=== PATIENT | male | born 1985 ===

== ENCOUNTER 2017-04-26 20:23 | Emergency (ER) | payer OTHER ==
[2017-04-26 20:31] VITALS: BMI 28.1
--- NOTE | 2017-04-26 20:43 | ED PDOC ---
Arrival/HPI - General Chief Complaint: Alcohol Ingestion Time Seen by Provider: 04/26/17 20:24 Historian: EMS, Police - History of Present Illness Narrative History of Present Illness (Text): 04/26/17 20:40 A 31 year old male brought into the emergency department by EMS and [place] [employer] for public intoxication. Patient admits to drinking alcohol.Denies any drug use.No somatic complaints.Patient asking for TV controller to change channels. Time/Duration: Prior to Arrival Context: Street Past Medical History - Provider Review Nursing Documentation Reviewed: Yes - Infectious Disease Hx of Infectious Diseases: None - Cardiac Hx Cardiac Disorders: No - Pulmonary Hx Respiratory Disorders: No - Neurological Hx Neurological Disorder: No - HEENT Hx HEENT Disorder: No - Renal Hx Renal Disorder: Yes Hx Kidney Stones: Yes - Endocrine/Metabolic Hx Endocrine Disorders: No - Hematological/Oncological Hx Blood Disorders: No - Integumentary Hx Dermatological Disorder: No - Musculoskeletal/Rheumatological Hx Musculoskeletal Disorders: No - Gastrointestinal Hx Gastrointestinal Disorders: No - Genitourinary/Gynecological Hx Genitourinary Disorders: No - Psychiatric Hx Psychophysiologic Disorder: No Hx Substance Use: No - Surgical History Other/Comment: Lithotripsy - Anesthesia Hx Anesthesia: Yes Hx Anesthesia Reactions: No Hx Malignant Hyperthermia: No - Suicidal Assessment Feels Threatened In Home Enviroment: No Family/Social History - Physician Review Nursing Documentation Reviewed: Yes Family/Social History: No Known Family HX Smoking Status: Never Smoked Hx Alcohol Use: Yes Hx Substance Use: No Allergies/Home Meds Allergies/Adverse Reactions: Allergies No Known Allergies Allergy (Verified 04/26/17 20:38) Home Medications: Home Meds Medication Instructions Recorded Confirmed Unobtainable [Unobtainable] 09/21/14 09/21/14 Review of Systems - Review of Systems Systems not reviewed;Unavailable: Intoxicated Physical Exam Vital Signs Reviewed: Yes Vital Signs Temp Pulse Resp BP Pulse Ox 04/26/17 22:23 98.6 F 90 15 142/70 99 04/26/17 20:27 98.5 F 110 H 21 145/89 98 Temperature: Afebrile Blood Pressure: Normal Pulse: Tachycardic Respiratory Rate: Normal Appearance: Positive for: Other (Intoxicated male) Mental Status: No: Agitated - Systems Exam Head: Present: Atraumatic, Normocephalic Pupils: Present: PERRL Extroacular Muscles: Present: EOMI Conjunctiva: Present: Normal Mouth: Present: Moist Mucous Membranes Neck: Present: Normal Range of Motion Respiratory/Chest: Present: Clear to Auscultation, Good Air Exchange. No: Respiratory Distress, Accessory Muscle Use Cardiovascular: Present: Regular Rate and Rhythm, Normal S1, S2. No: Murmurs Abdomen: Present: Normal Bowel Sounds. No: Tenderness, Distention, Peritoneal Signs Back: Present: Normal Inspection Upper Extremity: Present: Normal Inspection. No: Cyanosis, Edema Lower Extremity: Present: Normal Inspection. No: Edema Skin: Present: Warm, Dry, Normal Color. No: Rashes Psychiatric: Present: Intoxicated Medical Decision Making ED Course and Treatment: 04/26/17 20:40 Impression: A 31 year old male brought in for public intoxication. Plan is observe patient in the emergency room pending sobriety. Differential Diagnosis included but are not limited to: Alcohol intoxication Plan: -- ED observation -- Reassess and disposition Progress Notes: 04/27/17 02:42 Pt. remains awake alert sober with steady gait in ED. - Scribe Statement The provider has reviewed the documentation as recorded by the Scribe Susan Plascencia Provider Scribe Attestation: All medical record entries made by the Scribe were at my direction and personally dictated by me. I have reviewed the chart and agree that the record accurately reflects my personal performance of the history, physical exam, medical decision making, and the department course for this patient. I have also personally directed, reviewed, and agree with the discharge instructions and disposition. Disposition/Present on Arrival - Present on Arrival Any Indicators Present on Arrival: No History of DVT/PE: No History of Uncontrolled Diabetes: No Urinary Catheter: No History of Decub. Ulcer: No History Surgical Site Infection Following: None - Disposition Have Diagnosis and Disposition been Completed?: Yes Diagnosis: Alcohol abuse Disposition: HOME/ ROUTINE Disposition Time: 02:41 Patient Plan: Discharge Condition: STABLE Discharge Instructions (ExitCare): Alcohol Abuse and Alcoholism (DC) Referrals: Gerald Ponce, [Primary Care Provider] - Follow up with primary Alcoholics Anonymous [Outside] - Follow up with primary Forms: Posibl. (Albanian)
[2017-04-27 03:35] VITALS: RESP 16; O2SAT 100
[2017-04-27 03:38] VITALS: BP 132/80; PULSE 79; TEMP 97.9
== END 2017-04-27 02:50 | disposition home or self-care (01) ==
LOC: ED 20:23
DX: F10.10 Alcohol abuse, uncomplicated (principal)